=== PATIENT | male | born 1965 | race Caucasian/White ===

== ENCOUNTER 2021-10-26 02:58 | Emergency (ER) | payer MEDICAID, OTHER ==
[~2021-10-26] VITALS: Ht 182.9 cm; Wt 77.1 kg
[~2021-10-26 02:58] MED LIST: NORCO
[2021-10-26 03:00] VITALS: BP 130/90
--- NOTE | 2021-10-26 03:00 | NUR ---
TO BED VIA WHEEL CHAIR
[2021-10-26] MEDS ORDERED: MORPHINE SULFATE 4 MG/ML SYR IM ONE (03:35)
--- NOTE | 2021-10-26 03:55 | NUR ---
X-ray at bedside.
[2021-10-26] MEDS ORDERED: KETOROLAC 30 MG/ML VIAL IM ONE (04:10)
[2021-10-26] MEDS ORDERED: diazePAM 5 MG TAB PO ONE (04:10)
--- NOTE | 2021-10-26 05:15 | NUR ---
Dr Burks at bedside discussing plan of care
[2021-10-26] MEDS ORDERED: ACET-8386 PO (06:15)
[2021-10-26] MEDS ORDERED: LID5T TP (06:15)
[2021-10-26] MEDS ORDERED: NAPR-54 PO (06:16)
[2021-10-26 06:35] VITALS: BP 138/74
--- NOTE | 2021-10-26 06:35 | NUR ---
Patient discharged with v/s stable. Written and verbal after care instructions given and explained. Patient alert, oriented and verbalized understanding of instructions. Ambulatory with steady gait. All questions addressed prior to discharge. ID band removed. Patient advised to follow up with PMD. Rx of Lidoderm Patch. and Naproxen given. Patient educated on indication of medication including possible reaction and side effects. Opportunity to ask questions provided and answered.
== END 2021-10-26 06:35 | disposition home or self-care (01) ==
LOC: MED 02:58
DX: S20.211A Contusion of right front wall of thorax, initial encounter (principal); S50.01XA Contusion of right elbow, initial encounter; Z72.89 Other problems related to lifestyle; Z98.890 Other specified postprocedural states; W18.30XA Fall on same level, unspecified, initial encounter; Y93.89 Activity, other specified; Y92.89 Other specified places as the place of occurrence of the external cause; Y99.8 Other external cause status
CPT/HCPCS: 71045; 73070; 96372; 99284; J1885; J2270; Q0092